=== PATIENT | male | born 1945 | race American Indian/Alaskan Native ===

== ENCOUNTER 2018-08-14 14:57 | Emergency (ER) | payer SELFPAY ==
--- NOTE | 2018-08-14 15:25 | Emergency Department Report ---
Blank Doc - Documentation Documentation: This is a 72-year-old male that presents with HTN. Patient stated took his bl ood pressure at his sisters house which she told him to come to the ED because it was high. When asked patient he is not sure of the number, This initial assessment/diagnostic orders/clinical plan/treatment(s) is/are subject to change based on patient's health status, clinical progression and re- assessment by fellow clinical providers in the ED. Further treatment and workup at subsequent clinical providers discretion. Patient/guardians urged not to elope from the ED as their condition may be serious if not clinically assessed and managed. Initial orders include: 1- Patient sent to [facility] for further evaluation and treatment 2- labs
[2018-08-14 15:37] LABS: Basophils % (Auto) 0.6 % (0.0-1.8); Eosinophils # (Auto) 0.2 K/mm3 (0.0-0.4); Hematocrit 41.6 % (35.5-45.6); Hemoglobin 13.9 gm/dl (11.8-15.2); Lymphocytes # (Auto) 1.6 K/mm3 (1.2-5.4); Mean Corpuscular HGB Conc 33 % (32-34); Mean Corpuscular Volume 84 fl (84-94); Monocytes # (Auto) 0.8 K/mm3 (0.0-0.8); Monocytes % (Auto) 11.8 % (0.0-7.3); Platelet Count 194 K/mm3 (140-440); Red Blood Count 4.95 M/mm3 (3.65-5.03); Red Cell Distribution Width 13.8 % (13.2-15.2)
[2018-08-14 15:56] LABS: BUN/Creatinine Ratio 14; Blood Urea Nitrogen 13 mg/dL (9-20); Calcium 8.9 mg/dL (8.4-10.2); Hemolysis Index 7
--- NOTE | 2018-08-14 18:20 | Cat Scan Report ---
PROCEDURE: CT HEAD/BRAIN WO CON TECHNIQUE: Axial helical imaging from the skull base to the vertex. HISTORY: headache COMPARISONS: None FINDINGS: There is no evidence of an acute intracranial process, intracranial hemorrhage or mass effect. Ventricular size is concordant with the degree of atrophy. The visualized portions of the orbits, paranasal and mastoid sinuses are notable for partial opacific ation of the visualized portion of the right maxillary sinus. The bony structures are unremarkable. IMPRESSION: 1. No evidence of an acute intracranial process, intracranial hemorrhage or mass effect. If the patient remains symptomatic and if further imaging is required, MRI may be helpful. 2. Partial opacification of the visualized portion of the right maxillary sinus. If further imaging is required, CT of the paranasal sinuses may be helpful. This document is electronically signed by Brianna Mcrae MD., August 14 2018 06:18:52 PM ET
--- NOTE | 2018-08-14 20:35 | Emergency Department Report ---
ED General Adult HPI - General Chief complaint: High BP Stated complaint: HIGH BP Time Seen by Provider: 08/14/18 15:23 Source: patient Mode of arrival: Ambulatory Limitations: No Limitations - History of Present Illness Severity scale (0 -10): 0 - Related Data Allergies Allergy/AdvReac Type Severity Reaction Status Date / Time iodine Allergy Swelling Verified 08/14/18 14:58 shellfish derived Allergy Swelling Verified 08/14/18 14:58 seafood Allergy Swelling Uncoded 08/14/18 14:58 ED Review of Systems ROS: Stated complaint: HIGH BP Other details as noted in HPI ED Past Medical Hx - Past Medical History Additional medical history: colon ca- - Surgical History Additional Surgical History: colectomy - Social History Smoking Status: Former Smoker Substance Use Type: None ED Physical Exam - General Limitations: No Limitations ED Course Vital Signs 08/14/18 08/14/18 15:04 15:24 Temperature 98.0 F 98 F Pulse Rate 76 76 Respiratory 16 16 Rate Blood Pressure 180/101 Blood Pressure 180/101 [Right] O2 Sat by Pulse 99 99 Oximetry ED Medical Decision Making - Lab Data Result diagrams: 08/14/18 15:28 08/14/18 15:28 - Radiology Data Radiology results: report reviewed Referring Physician: KENDELL RANGEL Patient Name: CHARITY CARCAMO Date of : 1945 Sex: Male Report Date: 2018-08-14 Report Status: [place] [address] Cat Scan Report Signed Patient: CHARITY CARCAMO MR#: [id number] 9 : 1945 Acct:[id number] Age/Sex: 72 / M ADM Date: 08/14/18 Loc: ED Attending Dr: Ordering Physician: KENDELL RANGEL NP Date of Service: 08/14/18 Procedure(s): CT head/brain wo con Accession Number(s): [id number] cc: KENDELL RANGEL NP PROCEDURE: CT HEAD/BRAIN WO CON TECHNIQUE: Axial helical imaging from the skull base to the vertex. HISTORY: headache COMPARISONS: None FINDINGS: There is no evidence of an acute intracranial process, intracranial hemorrhage or mass effect. Ventricular size is concordant with the degree of atrophy. The visualized portions of the orbits, paranasal and mastoid sinuses are notable for partial opacification of the visualized portion of the right maxillary sinus. The bony structures are unremarkable. IMPRESSION: 1. No evidence of an acute intracranial process, intracranial hemorrhage or mass effect. If the patient remains symptomatic and if further imaging is required, MRI may be helpful. 2. Partial opacification of the visualized portion of the right maxillary sinus. If further imaging is required, CT of the paranasal sinuses may be helpful. This document is electronically signed by Brianna Gauthier MD., August 14 2018 06:18:52 PM ET Transcribed By: ED Dictated By: BRIANNA GAUTHIER MD Electronically Authenticated By: BRIANNA GAUTHIER MD Signed Date/Time: 08/14/181819 DD/ 43 TD/TT: 08/14/181743 Critical care attestation.: If time is entered above; I have spent that time in minutes in the direct care of this critically ill patient, excluding procedure time. ED Disposition Condition: Stable Referrals: [facility] [Other] - 3-5 Days
[2018-08-14] MEDS ORDERED: NORCO 5/325 PO ONE (20:43)
[2018-08-14] MEDS ORDERED: ZOFRAN ODT PO ONE (20:43)
[2018-08-14] MEDS ORDERED: CATAPRES PO ONE (20:43)
[2018-08-14] MEDS ORDERED: NORCO 5/325 ONE (20:46)
[2018-08-14] MEDS ORDERED: CATAPRES ONE (20:46)
--- NOTE | 2018-08-14 20:49 | Emergency Department Report ---
ED General Adult HPI - General Chief complaint: High BP Stated complaint: HIGH BP Time Seen by Provider: 08/14/18 15:23 Source: patient Mode of arrival: Ambulatory Limitations: No Limitations - History of Present Illness Initial comments: Patient is 72 years old male with history of hypertension, not on any medication. Patient stated that he felt dizzy today and he checked his blood pressure was 195/115. Patient denied any chest pain, shortness of breath, weakness numbness or tingling sensation. Patient also complaining of LEFT lower teeth pain. Severity scale (0 -10): 10 - Related Data Allergies Allergy/AdvReac Type Severity Reaction Status Date / Time iodine Allergy Swelling Verified 08/14/18 14:58 shellfish derived Allergy Swelling Verified 08/14/18 14:58 seafood Allergy Swelling Uncoded 08/14/18 14:58 ED Review of Systems ROS: Stated complaint: HIGH BP Other details as noted in HPI Comment: All other systems reviewed and negative Constitutional: denies: chills, fever Respiratory: denies: cough, shortness of breath, SOB with exertion Cardiovascular: denies: chest pain, palpitations Gastrointestinal: denies: abdominal pain, nausea, vomiting, diarrhea, constipation, hematemesis, hematochezia Musculoskeletal: denies: back pain Neurological: denies: headache, weakness, numbness, paresthesias, confusion, abnormal gait ED Past Medical Hx - Past Medical History Additional medical history: colon ca- - Surgical History Additional Surgical History: colectomy - Social History Smoking Status: Former Smoker Substance Use Type: None ED Physical Exam - General Limitations: No Limitations General appearance: alert, in no apparent distress - Head Head exam: Present: atraumatic, normocephalic, normal inspection - Eye Eye exam: Present: normal appearance - ENT ENT exam: Present: normal exam, normal orophraynx, mucous membranes moist - Neck Neck exam: Present: normal inspection. Absent: tenderness, meningismus - Respiratory Respiratory exam: Present: normal lung sounds bilaterally. Absent: respiratory distress, wheezes, rales, rhonchi, accessory muscle use, decreased breath sounds , prolonged expiratory - Cardiovascular Cardiovascular Exam: Present: regular rate, normal rhythm, normal heart sounds - GI/Abdominal GI/Abdominal exam: Present: soft, normal bowel sounds. Absent: distended, tenderness, guarding, rebound, rigid - Extremities Exam Extremities exam: Present: normal inspection, full ROM, normal capillary refill. Absent: pedal edema, calf tenderness - Back Exam Back exam: Present: normal inspection, full ROM. Absent: tenderness, CVA tenderness (R), CVA tenderness (L), muscle spasm, paraspinal tenderness, v ertebral tenderness - Neurological Exam Neurological exam: Present: alert, oriented X3, CN II-XII intact, normal gait, reflexes normal - Skin Skin exam: Present: warm, intact, normal color ED Course Vital Signs 08/14/18 08/14/18 08/14/18 15:04 15:24 20:36 Temperature 98.0 F 98 F Pulse Rate 76 76 70 Respiratory 16 16 20 Rate Blood Pressure 180/101 Blood Pressure 180/101 194/107 [Right] O2 Sat by Pulse 99 99 99 Oximetry 08/14/18 08/14/18 08/14/18 20:47 21:41 22:38 Temperature Pulse Rate 70 68 62 Respiratory 18 16 Rate Blood Pressure 194/107 Blood Pressure 172/99 163/95 [Right] O2 Sat by Pulse 99 98 Oximetry ED Medical Decision Making - Lab Data Result diagrams: 08/14/18 15:28 08/14/18 15:28 Critical care attestation.: If time is entered above; I have spent that time in minutes in the direct care of this critically ill patient, excluding procedure time. ED Disposition Clinical Impression: Malignant hypertension, Dental abscess, Dizziness Disposition: -01 TO HOME OR SELFCARE Is pt being admited?: No Condition: Stable Instructions: Hypertension (ED), Dizziness (ED) Referrals: [facility] [Other] - 3-5 Days
[2018-08-14 22:38] VITALS: BP 163/95
== END 2018-08-14 23:00 | disposition home or self-care (01) ==
LOC: ED 14:57
DX: I10 Essential (primary) hypertension (principal); K04.7 Periapical abscess without sinus; R42 Dizziness and giddiness; Z91.013 Allergy to seafood; Z91.041 Radiographic dye allergy status; Z90.49 Acquired absence of other specified parts of digestive tract; Z87.891 Personal history of nicotine dependence
CPT/HCPCS: 36415; 70450; 80048; 85025; 99284

== ENCOUNTER 2020-10-17 11:59 | Emergency (ER) | payer SELFPAY ==
[2020-10-17 12:36] VITALS: BP 138/71
--- NOTE | 2020-10-17 12:44 | Event Note ---
ED Screening Note Date of service: 10/17/20 Time: 12:41 ED Screening Note: 75-year-old male was brought into the ER today by daughter with complaints of severe pain in his back and his legs. 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 This diagnosis was 2 weeks ago when he went to [place] because he was seen at outside medical and was noted to have a low hemoglobin and was sent over for treatment. He end up having a CT scan which noted the cancer with mets. Daughter states that she recently flew here from out of town to help take care of her dad, and even try to coordinate care for him to see a oncologist but have been unsuccessful. She states that she is scheduled to go back home today and was hoping getting admitted today and a social organization professor consult Has medical history includes hypertension, and colon cancer diagnosed in 1997 status post colectomy Daughter states that patient has been weak, and also having diarrhea This initial assessment/diagnostic orders/clinical plan/treatment(s) is/are subject to change based on patients health status, clinical progression and re- assessment by fellow clinical providers in the ED. Further treatment and workup at subsequent clinical providers discretion. Patient/guardian urged not to elope from the ED as their condition may be serious if not clinically assessed and managed. Initial orders include: Labs
[2020-10-17 12:56] LABS: Hematocrit 24.5 % (35.5-45.6); Hemoglobin 7.8 gm/dl (11.8-15.2); Mean Corpuscular HGB Conc 32 % (32-34); Mean Corpuscular Volume 85 fl (84-94); Platelet Count 191 K/mm3 (140-440); Red Blood Count 2.87 M/mm3 (3.65-5.03)
[2020-10-17 13:29] LABS: Alanine Aminotransferase 13 units/L (7-56); Albumin 3.5 g/dL (3.9-5); Blood Urea Nitrogen 18 mg/dL (9-20); Calcium 9.2 mg/dL (8.4-10.2); Hemolysis Index 4
[2020-10-17 13:30] LABS: BUN/Creatinine Ratio 30
[2020-10-17 13:34] LABS: Red Cell Distribution Width 22.9 % (13.2-15.2)
[2020-10-17 17:25] LABS: Anisocytosis 1+; Hypochromasia Rare; Schistocytes Few; Total Cells Counted 100
[2020-10-17] MEDS ORDERED: HYDROcodone/ACETAMINOPHEN 10-325MG TAB PO ONE (17:34)
== END 2020-10-17 17:46 | disposition left against medical advice (07) ==
LOC: ED 11:59
DX: M54.6 Pain in thoracic spine (principal); M79.604 Pain in right leg; M79.605 Pain in left leg; Z53.21 Procedure and treatment not carried out due to patient leaving prior to being seen by health care provider
CPT/HCPCS: 36415; 80053; 83690; 85007; 85025; 86850; 86900; 86901